=== PATIENT | female | born 1975 | race Caucasian/White ===

== ENCOUNTER 2022-10-28 13:46 | Emergency (ER) | payer OTHER, SELFPAY ==
--- NOTE | ~2022-10-28 | XR_ITS ---
EXAMINATION: XR CHEST CLINICAL INFORMATION: Cough. Question pneumonia. COMPARISON: None available. TECHNIQUE: Frontal view of the chest was obtained. FINDINGS: Cardiac silhouette is normal in size. The lungs are well aerated. There is no lobar consolidation. No pleural effusion or pneumothorax. No acute osseous abnormality. XR/XR chest 1V IMPRESSION: No acute pulmonary pathology.
[2022-10-28 13:50] VITALS: BP 160/79; PULSE 110; RESP 20; TEMP 36.9; O2SAT 96; BMI 42.0
--- NOTE | 2022-10-28 13:54 | ED.GENADULT ---
HPI - General Adult General Chief complaint: Upper Respiratory Symptoms <KELLI Landa - Last Filed: 11/10/22 12:35> Stated complaint: cough wheezing <KELLI Landa Last Filed: 11/10/22 12:35> Time Seen by Provider: 10/28/22 14:21 <KELLI Landa - Last Filed: 11/10/22 12:35> Source: patient <KELLI Hinojosa Last Filed: 10/28/22 17:37> Mode of arrival: ambulatory <KELLI Hinojosa Last Filed: 10/28/22 17:37> Limitations: no limitations <KELLI Hinojosa Last Filed: 10/28/22 17:37> History of Present Illness HPI narrative: Patient is a 47 year old assigned female at with no reported medical history presenting to the emergency department today with cough, congestion, and headache x1 weeks. Patient states that she has been having a cough, headache, and congestion for 1 week. Patient states that her son recently tested positive for strep and she was started on Pen VK but had a negative strep test so she stopped it. Patient denies any dizziness, lightheadedness, abdominal pain, nausea, vomiting, fever, chills, blurry vision, double vision, loss of vision, chest pain, difficulty breathing, shortness of breath, back pain, night sweats, pain with urination, increased urinary frequency, increased urinary urgency, blood in her urine or stool, syncope or a near syncopal episode, recent trauma or falls, bowel incontinence, bladder incontinence, bowel retention, bladder retention, or any other complaints at this time. <KELLI Hinojosa - Last Filed: 10/28/22 17:37> Onset (ago): week(s) (1) <KELLI Hinojosa Last Filed: 10/28/22 17:37> Severity: mild <KELLI Hinojosa Last Filed: 10/28/22 17:37> Severity scale (1-10): 2 <KELLI Hinojosa Last Filed: 10/28/22 17:37> Relieving factors: none <KELLI Hinojosa Last Filed: 10/28/22 17:37> Exacerbating factors: none <KELLI Hinojosa Last Filed: 10/28/22 17:37> Associated symptoms: cough <KELLI Hinojosa Last Filed: 10/28/22 17:37> Treatments prior to arrival: none <KELLI Hinojosa Last Filed: 10/28/22 17:37> Related Data Home medications: Previous Rx's Medication Instructions Recorded albuterol sulfate 90 mcg/actuation 1 inh inhalation QID PRN shortness 10/28/22 aerosol inhaler of breath or wheezing #8.5 grams prednisone 20 mg tablet 20 mg PO DAILY 7 days #7 tabs 10/28/22 <KELLI Landa Last Filed: 11/10/22 12:35> Allergies/adverse reactions: Allergies Allergy/AdvReac Type Severity Reaction Status Date / Time No Known Allergies Allergy Verified 10/28/22 13:51 <KELLI Landa Last Filed: 11/10/22 12:35> Review of Systems Constitutional: Constitutional: Reports no additional constitutional complaints, Denies chills, Denies fever(s) and Denies night sweats <KELLI Hinojosa Last Filed: 10/28/22 17:37> Eyes: Eyes: Reports no additional eye complaints, Denies blurry vision, Denies change in vision, Denies diplopia, Denies eye discharge, Denies loss of vision and Denies eye pain <KELLI Hinojosa Last Filed: 10/28/22 17:37> ENT: Denies dizziness and Reports nasal congestion <KELLI Hinojosa Last Filed: 10/28/22 17:37> Cardiovascular: Cardiovascular: Reports no additional cardiovascular complaints, Denies chest pain, Denies lightheadedness, Denies Loss of Consciousness and Denies dyspnea <KELLI Hinojosa Last Filed: 10/28/22 17:37> Respiratory: Respiratory: Reports no additional respiratory complaints, Reports cough and Denies dyspnea <KELLI Hinojosa Last Filed: 10/28/22 17:37> Gastrointestinal: Gastrointestinal: Reports no additional gastrointestinal complaints, Denies abdominal pain, Denies melena, Denies hematochezia, Denies change in bowel habits and Denies change in stool character <KELLI Hinojosa Last Filed: 10/28/22 17:37> Genitourinary: Genitourinary: Denies hematuria, Denies urinary frequency, Denies dysuria, Denies urinary incontinence, Denies urinary hesitancy and Denies urinary urgency <KELLI Hinojosa - Last Filed: 10/28/22 17:37> Musculoskeletal: Musculoskeletal: Reports no additional musculoskeletal complaints, Denies numbness and Denies tingling <KELLI Hinojosa - Last Filed: 10/28/22 17:37> Neurologic: Denies dizziness, Denies loss of vision, Denies numbness and Denies tingling <KELLI Hinojosa - Last Filed: 10/28/22 17:37> Psychiatric: Psychiatric: Reports no additional psychiatric complaints <KELLI Hinojosa - Last Filed: 10/28/22 17:37> Endocrine: Endocrine: Reports no additional endocrine complaints <KELLI Hinojosa - Last Filed: 10/28/22 17:37> Hematologic/Lymphatic: Hematologic/Lymphatic: Reports no additional hematologic/lymphatic complaints <KELLI Hinojosa - Last Filed: 10/28/22 17:37> Allergic/Immunologic: Allergic/Immunologic: Reports no additional allergic/immunologic complaints <KELLI Hinojosa - Last Filed: 10/28/22 17:37> COUNT INCLUDES THE [facility] Past Medical History Attestation statement: The following information was validated with the patient. <KELLI Hinojosa - Last Filed: 10/28/22 17:37> Source: old records reviewed and nursing notes reviewed <KELLI Hinojosa - Last Filed: 10/28/22 17:37> Social History Social History: Social History Advance Directives: No Advance Directives Information Provided: No <KELLI Landa - Last Filed: 11/10/22 12:35> Physical Exam ED Vital Signs: Vital Signs - 24 hr 10/28/22 13:50 Temperature 98.5 F Pulse Rate 110 H Respiratory Rate 20 Blood Pressure 160/79 H Pulse Oximetry 96 Oxygen Delivery Method Room Air BMI result Body Mass Index 42.0 <KELLI Landa - Last Filed: 11/10/22 12:35> Vital Signs - 24 hr 10/28/22 13:50 Temperature 98.5 F Pulse Rate 110 H Respiratory Rate 20 Blood Pressure 160/79 H Pulse Oximetry 96 Oxygen Delivery Method Room Air BMI result Body Mass Index 42.0 <KELLI Hinojosa - Last Filed: 10/28/22 17:37> Const General: cooperative, no acute distress, alert and awake <KELLI Hinojosa - Last Filed: 10/28/22 17:37> Nutritional Appearance: well nourished <KELLI Hinojosa - Last Filed: 10/28/22 17:37> Orientation/consciousness: patient oriented x3 <KELLI Hinojosa - Last Filed: 10/28/22 17:37> Limitations: no limitations <KELLI Hinojosa - Last Filed: 10/28/22 17:37> HENMT Head: Yes normal to inspection and Yes atraumatic <KELLI Hinojosa - Last Filed: 10/28/22 17:37> Ears: hearing grossly normal bilaterally and external ears normal <KELLI Hinojosa - Last Filed: 10/28/22 17:37> General nose exam: Normal external nose present, no nasal discharge noted and no epistaxis <Flores Blas PA - Last Filed: 10/28/22 17:37> Face and sinus: Yes normal facial exam, No abrasion and No laceration <Flores Blas PA - Last Filed: 10/28/22 17:37> Mouth: Normal oral and palatal mucosa present, no drooling and no muffled voice <Flores Blas PA - Last Filed: 10/28/22 17:37> Eyes General: appearance normal, both eyes and all related structures <KELLI Hinojosa - Last Filed: 10/28/22 17:37> Periorbital: periorbital findings normal <KELLI Hinojosa - Last Filed: 10/28/22 17:37> Eyelids: Yes eyelids normal <KELLI Hinojosa - Last Filed: 10/28/22 17:37> Conjunctivae: conjunctivae normal <KELLI Hinojosa - Last Filed: 10/28/22 17:37> Pupils: Equal, round and reactive pupils present <KELLI Hinojosa - Last Filed: 10/28/22 17:37> EOM: EOMs intact bilaterally <Flores Blas PA - Last Filed: 10/28/22 17:37> Neck Neck: Yes normal visual inspection, Yes full ROM and Yes no lymphadenopathy <Flores Blas PA - Last Filed: 10/28/22 17:37> Chest Chest palpation & inspection: normal inspection of the chest <Flores Blas PA - Last Filed: 10/28/22 17:37> Resp Effort & Inspection: normal respiratory effort and able to speak in complete sentences <Flores Blas PA - Last Filed: 10/28/22 17:37> Auscultation: clear to auscultation bilaterally <Flores Blas PA - Last Filed: 10/28/22 17:37> Cardio Rate: regular rate <Flores Blas PA - Last Filed: 10/28/22 17:37> Rhythm: regular rhythm <Flores Blas PA - Last Filed: 10/28/22 17:37> GI Inspection: Yes normal to inspection <Flores Blas PA - Last Filed: 10/28/22 17:37> Palpation (GI): Soft to palpation, not firm, nontender and no guarding <Flores Blas PA - Last Filed: 10/28/22 17:37> Neuro General: patient oriented x3 and moves all extremities <Flores Blas PA - Last Filed: 10/28/22 17:37> Cranial nerves: Yes Equal, round and reactive pupils present <Flores Blas PA - Last Filed: 10/28/22 17:37> Cognition (Neuro): normal cognition <Flores Blas PA - Last Filed: 10/28/22 17:37> Motor exam (neuro): 5/5 motor strength present throughout <Flores Blas PA - Last Filed: 10/28/22 17:37> Sensory Exam: Normal double simultaneous stimulation for sensation <Flores Blas PA - Last Filed: 10/28/22 17:37> Coordination: [id number] test normal <Flores Blas PA - Last Filed: 10/28/22 17:37> Extrem General: Yes normal to inspection, Yes full ROM and Yes capillary refill normal <Flores Blsa PA - Last Filed: 10/28/22 17:37> Psych Appearance: grossly normal <KELLI Hinojosa - Last Filed: 10/28/22 17:37> Mental Status: mental status grossly normal <KELLI Hinojosa - Last Filed: 10/28/22 17:37> Affect: normal affect <KELLI Hinojosa - Last Filed: 10/28/22 17:37> Attitude: cooperative <KELLI Hinojosa - Last Filed: 10/28/22 17:37> Thought process: Normal thought process present <KELLI Hinojosa - Last Filed: 10/28/22 17:37> Thought content: Normal thought content present <KELLI Hinojosa Last Filed: 10/28/22 17:37> Insight: Good insight present (Psych) <KELLI Hinojosa Last Filed: 10/28/22 17:37> Course Course Course Narrative: RME: 47 yold female presents to the ED URI symptoms. She states her son is also sick. Patietn deneis any chest pain or shortness of breath. Chest xray and SARS ordered <KELLI Landa - Last Filed: 11/10/22 12:35> Medical Decision Making Medical Decision Making MDM Narrative: Patient is a 47 year old assigned female at with no reported medical history presenting to the emergency department today with a cough and nasal congestion. Patient's physical exam was unremarkable. Patient's chest x-ray showed no acute process. Patient's COVID/RSV/Influenza swab was negative. I explained my physical exam findings as well as all test results to the patient. I answered all questions asked by the patient. I stressed the importance of the patient taking her medication as prescribed, including the previously prescribed Pen VK. I stressed the importance of the patient following up with her primary care provider. I stressed the importance of the patient returning to the emergency department immediately if her symptoms were to worsen or if she were to develop any dizziness, shortness of breath, difficulty breathing, chest pain, blurry vision, loss of vision, nausea, vomiting, abdominal pain, fever, chills, back pain, or any other complaints. Patient verbalized agreement and understanding with this treatment plan and discharge. <KELLI Hinojosa Last Filed: 10/28/22 17:37> Differential Diagnosis Differential Diagnoses: The differential diagnosis associated with the presentation includes <KELLI Hinojosa Last Filed: 10/28/22 17:37> upper respiratory infection <KELLI Hinojosa Last Filed: 10/28/22 17:37> Lab Data MDM Lab Attestation statement: I reviewed the patient's lab results. <KELLI Hinojosa Last Filed: 10/28/22 17:37> Labs: Lab Results 10/28/22 Range/Units 13:56 Influenza Type A (PCR) NEGATIVE (Negative) Influenza Type B (PCR) NEGATIVE (Negative) RSV RNA Qual (PCR) NEGATIVE (Negative) SARS-CoV-2 RNA (RT-PCR) NEGATIVE (Negative) <KELLI Landa Last Filed: 11/10/22 12:35> Lab Results 10/28/22 Range/Units 13:56 Influenza Type A (PCR) NEGATIVE (Negative) Influenza Type B (PCR) NEGATIVE (Negative) RSV RNA Qual (PCR) NEGATIVE (Negative) SARS-CoV-2 RNA (RT-PCR) NEGATIVE (Negative) <KELLI Hinojosa Last Filed: 10/28/22 17:37> Independent Interpretation I performed an independent interpretation of an: Plain X-Ray <KELLI Hinojosa Last Filed: 10/28/22 17:37> Interpretation: My interpretation is in agreement with the radiologist's impression of this imaging study. EXAMINATION: XR CHEST CLINICAL INFORMATION: Cough. Question pneumonia. COMPARISON: None available. TECHNIQUE: Frontal view of the chest was obtained. FINDINGS: Cardiac silhouette is normal in size. The lungs are well aerated. There is no lobar consolidation. No pleural effusion or pneumothorax. No acute osseous abnormality. XR/XR chest 1V IMPRESSION: No acute pulmonary pathology. ? Dictated By: Donell Madera MD Signed By: Electronically signed by Donell Madera MD 10/28/22 1524 <KELLI Hinojosa - Last Filed: 10/28/22 17:37> Discharge Plan Discharge Clinical Impression: Upper respiratory infection <KELLI Landa - Last Filed: 11/10/22 12:35> Patient Disposition: Home, Self-Care <KELLI Landa - Last Filed: 11/10/22 12:35> Instructions: Upper Respiratory Infection (DC) <KELLI Landa Last Filed: 11/10/22 12:35> Additional Instructions: Continue taking your antibiotics as previously perscribed. Follow up with your primary care provider. Return to the emergency department immediately if your symptoms worsen or if you develop any dizziness, shortness of breath, difficulty breathing, chest pain, blurry vision, loss of vision, nausea, vomiting, abdominal pain, fever, chills, back pain, or any other complaints. <KELLI Landa - Last Filed: 11/10/22 12:35> Prescriptions: New prednisone 20 mg tablet 20 mg PO DAILY 7 Days Qty: 7 0RF albuterol sulfate 90 mcg/actuation HFA aerosol inhaler 1 inh inhalation QID PRN (Reason: shortness of breath or wheezing) Qty: 8.5 0RF <KELLI Landa - Last Filed: 11/10/22 12:35> Referrals: Anuradha Jones NP [Primary Care Provider] - <KELLI Landa - Last Filed: 11/10/22 12:35> Stand Alone Forms: Work/School Release <KELLI Landa - Last Filed: 11/10/22 12:35> Interventions: ED Discharge Assessment Last Done: 10/28/22 14:51 <KELLI Landa - Last Filed: 11/10/22 12:35> Discharge Date/Time: 10/28/22 14:52 <KELLI Landa - Last Filed: 11/10/22 12:35> Print Language: Mongolian <KELLI Landa Last Filed: 11/10/22 12:35>
--- OUTSIDE RECORDS SUMMARY | 2022-10-28 14:31 | XMS_ITS | Continuity of Care Document ---
Author Name Unknown Organization [facility] e Medicine Address [address], [address] [place] [address]- Care Team Providers Care Grade Checker Name Role Phone Omar Mauro BARDALES Primary Care Physician Encounter [facility] [place] Date(s): 07/07/20 - 08/06/20 [facility] Reproductive Medicine [address], 4[address] [place] [address]- Allergies, Adverse Reactions, Alerts Substance Reaction Severity Status NKA Active Medications Adderall 10 mg oral tablet 1 tablet = 10 mg, By Mouth, 3 times a day, 0 Refills, Maintenance, 11/08/15 15:57:39 Start Date: 11/08/15 Status: Ordered Albuterol 0, 0, 03/14/06 15:11:20, Print DIEGO Number, Constant Indicator Start Date: 03/14/06 Status: Ordered Amlodipine = 5 mg, By Mouth, Daily, 0 Refills, Maintenance, 01/02/16 20:45:06 Start Date: 01/02/16 Status: Ordered BuSpar 15 mg oral tablet 1 tablet, By Mouth, Daily in AM, 0 Refills, Maintenance, 11/08/15 15:57:03 Start Date: 11/08/15 Status: Ordered CeleXA 40 mg oral tablet 40 mg, 1, tablet, By Mouth, Daily, # 30 tablet, Refills 0, Maintenance, 11/08/15 15:56:54 Start Date: 11/08/15 Status: Ordered Hydrochlorothiazide = 25 mg, By Mouth, Daily, 0 Refills, Maintenance, 11/08/15 15:57:25 Start Date: 11/08/15 Status: Ordered ibuprofen 800 mg oral tablet 800 mg, 1, tablet, By Mouth, Every 8 hours, # 30 tablet, Refills 0, Tot. Refills 0, Maintenance, 12/11/15 10:38:52, Print Requisition Start Date: 12/11/15 Status: Ordered lisinopril 5 mg oral tablet 5 mg, 1, tablet, By Mouth, Daily, # 30 tablet, Refills 0, Maintenance, 01/24/16 11:42:33 Start Date: 01/24/16 Status: Ordered NuLYTELY with Flavor Packs oral powder for reconstitution 240 mL, By Mouth, Every 10 minutes, # 1 each, 0 Refills, Maintenance, 05/28/16 14:29:50, REC Powder, 240 mL By Mouth Every 10 minutes Start Date: 05/28/16 Status: Ordered Aileen-Colace 2 tablet, By Mouth, Daily at bedtime, 0 Refills, Maintenance, 05/28/16 10:57:20 Start Date: 05/28/16 Status: Ordered Problem List Condition Effective Dates Status Health Status Inform ant Abnormal uterine bleeding (AUB)(Confirmed) Active Adult ADHD(Confirmed) Active Asthma - currently dormant(Confirmed) Active Depression(Confirmed) Active Mild HTN(Confirmed) Active 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
--- OUTSIDE RECORDS SUMMARY | 2022-10-28 14:31 | XMS_ITS | Continuity of Care Document ---
Author Name Unknown Organization [facility] e Medicine Address [address], [address] [place] [address]- Care Team Providers Care Structural Technician Name Role Phone Omar Mauro BARDALES Primary Care Physician [phone] Encounter [facility] [place] Date(s): 12/12/20 - 01/11/21 [facility] Reproductive Medicine [address], 4[address] [place] [address]- Allergies, Adverse Reactions, Alerts Substance Reaction Severity Status NKA Active Medications Adderall 10 mg oral tablet 1 tablet = 10 mg, By Mouth, 3 times a day, 0 Refills, Maintenance, 11/08/15 15:57:39 Start Date: 11/08/15 Status: Ordered Albuterol 0, 0, 03/14/06 15:11:20, Print DIEGO Number, Constant Indicator Start Date: 03/14/06 Status: Ordered CeleXA 40 mg oral tablet 40 mg, 1, tablet, By Mouth, Daily, # 30 tablet, Refills 0, Maintenance, 11/08/15 15:56:54 Start Date: 11/08/15 Status: Ordered cetirizine 10 mg oral tablet 1 tablet = 10 mg, By Mouth, Daily, 0 Refills, Maintenance, 08/25/20 8:17:00 EST, Partial fill upon patient request if the prescription is for a schedule II opioid drug. Start Date: 08/25/20 Status: Ordered NIFEdipine 30 mg oral tablet, extended release 30 mg, 1, tablet, By Mouth, Daily, Refills 0, Maintenance, 08/25/20 8:17:00 EST, Partial fill upon patient request if the prescription is for a schedule II opioid drug. Start Date: 08/25/20 Status: Ordered propranolol 80 mg oral capsule, extended release 80 mg, 1, capsule, By Mouth, Daily, Refills 0, Maintenance, 08/25/20 8:16:00 EST, Partial fill uponpatient request if the prescription is for a schedule II opioid drug. Start Date: 08/25/20 Status: Ordered Vitamin B Complex Vitamin B Complex, Refills 0, Maintenance, 08/25/20 8:18:00 EST, Supply Start Date: 08/25/20 Status: Ordered Vitamin D3 By Mouth, Daily, 0 Refills, Maintenance, 08/25/20 8:17:00 EST, Partial fill upon patient request ifthe prescription is for a schedule II opioid drug. Start Date: 08/25/20 Status: Ordered Problem List Condition Effective Dates [...]
--- OUTSIDE RECORDS SUMMARY | 2022-10-28 14:31 | XMS_ITS | Continuity of Care Document ---
Author Name Unknown Organization [facility] e Medicine Address [address], [address] [place] [address]- Care Team Providers Care Bioinformatics Technician Name Role Phone Omar Mauro BARDALES Primary Care Physician [phone] Encounter [facility] [place] Date(s): 08/25/20 - 09/24/20 [facility]ro[facility] [address] [place], [place] [address] [[email or web address] Attending Physician: Nasrin Zuniga Admitting Physician: Nasrin Zuniga Referring Physician: AdmtrNasrin Allergies, Adverse Reactions, Alerts Substance Reaction Severity [...]
--- OUTSIDE RECORDS SUMMARY | 2022-10-28 14:31 | XMS_ITS | Continuity of Care Document ---
Author Name Unknown Organization [facility] e Medicine Address [address], [address] [place] [address]- Care Team Providers Care Manufacturing Engineer Paint Name Role Phone Omar Mauro BARDALES Primary Care Physician [place] [facility] [place](s): 08/29/20 - 09/28/20 [facility] Reproductive Medicine [address], 4th [address] [place] [address]- Allergies, Adverse Reactions, Alerts Substance Reaction Severity [...]
--- OUTSIDE RECORDS SUMMARY | 2022-10-28 14:31 | XMS_ITS | Continuity of Care Document ---
Author Name Unknown Organization [facility] Address [address] [place] [address]- Care Team Providers Care Skein Winder Name Role Phone Karen ALFRED, Anuradha Go Primary Care Physician [phone] Encounter [facility] [place] Date(s): 09/26/21 - 10/26/21 [facility] [address] [place] [id number] Attending Physician: Nasrin Zuniga Admitting Physician: AdmNasrin olguin Referring Physician: Admtr Ar8 Allergies, Adverse Reactions, Alerts No Known Allergies Medications Adderall 10 mg oral tablet 1 [...] opioid drug. Start Date: 08/25/20 Status: Ordered Provera 10 mg oral tablet 10 mg, 1, tablet, By Mouth, 2 times a day, for 10 days, # 20 tablet, Refills 1, Tot. Refills 1, Acute 10/31/21 15:07:00 EDT, 10/11/21 15:07:00 EST, Route to Pharmacy Electronically, [facility]/pharmacy #[id number], Partial fill upon patient request if the prescrip... Start Date: 10/11/21 Stop Date: 10/31/21 Status: Ordered Provera 10 mg oral tablet 20 mg, 2, tablet, By Mouth, Daily, # 180 tablet, Refills 6, Tot. Refills 6, Maintenance, 10/24/21 16:33:00 EDT, Route to Pharmacy Electronically, [facility]/pharmacy #[id number], Partial fill upon patient requestif the prescription is for a schedule II opioid ha... 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
--- OUTSIDE RECORDS SUMMARY | 2022-10-28 14:31 | XMS_ITS | Continuity of Care Document ---
Author Name Unknown Organization [facility] Address [address] [place] [address]- Care Team Providers Care Manager Residential Name Role Phone Augustine Do DObrooklyn Go Primary Care Physician Encounter [facility] [place] Date(s): 08/28/20 - 11/15/20 [facility] [address] [place] [id number] Attending Physician: Hiram Delgado MD Admitting Physician: Sandy BOO, Hiram Referring Physician: Dorita Goodman MD Allergies, Adverse Reactions, Alerts Substance Reaction Severity [...]
--- OUTSIDE RECORDS SUMMARY | 2022-10-28 14:31 | XMS_ITS | Continuity of Care Document ---
Author Name Unknown Organization [facility] Address [address] [place] [address]- Care Team Providers Care Lithopone Mill Worker Name Role Phone Mauro Do DO Primary Care Physician [phone] Encounter [facility] [place] Date(s): 10/16/20 - 11/15/20 [facility] [address] [place] [id number] Attending Physician: Nasrin Zuniga Admitting Physician: AdmtrNasrin Referring Physician: Admtr, Ar8 Allergies, Adverse Reactions, Alerts Substance Reaction Severity [...]
--- OUTSIDE RECORDS SUMMARY | 2022-10-28 14:31 | XMS_ITS | Continuity of Care Document ---
Author Name Unknown Organization [facility] Address [address] [place] [address]- Care Team Providers Care Program Schedule Clerk Name Role Phone Karen ALFRED, Anuradha Go Primary Care Physician [phone] [place] [facility] [place]): [place] - 12/15/21 [facility] Oncology [address] [place] [address]- Attending Physician: Mark yBrd MD Admitting Physician: Mark Byrd MD Referring Physician: Anuradha Jones NP Allergies, Adverse Reactions, Alerts No Known Allergies [...] 10/24/21 16:33:00 EDT, Route to Pharmacy Electronically, [facility]/pharmacy #[id number], Partial fill upon patient requestif the prescription [...]
--- OUTSIDE RECORDS SUMMARY | 2022-10-28 14:31 | XMS_ITS | Continuity of Care Document ---
Author Name Unknown Organization [facility] e Medicine Address Unknown Care Team Providers Care Web Designer Name Role Phone Karen ALFRED, Anuradha Go Primary Care Physician Encounter [facility] [place] AC[facility] R [id number] Date(s): 01/22/22 - 01/29/22 [facility] Reproductive Medicine Attending Physician: Dorita Goodman MD Allergies, Adverse Reactions, Alerts No Known Allergies [...] 10/24/21 16:33:00 EDT, Route to Pharmacy Electronically, [facility]/pharmacy #[id number], Partial fill upon patient requestif the [...] 2006 Active 1laparoscopic tubal with filshie clips Vital Signs Most recent to oldest [Reference Range]: 1 Height 160 cm (01/22/22 3:43 PM) Weight 104.3 kg (01/22/22 3:43 PM) Pulse Rate [55-90 bpm] 96 bpm *H* (01/22/22 3:43 PM) Body Mass Index [18.5-24.99] 40.74 *>HHI* (01/22/22 3:43 PM) Blood Pressure [90-138/55-84 mm Hg] 170/ 88mm Hg *H* (01/22/22 3:43 PM) Blood pressure sites Arm, left (01/22/22 3:43 PM) Weight Obtained Via Standing scale (01/22/22 3:43 PM) Social History Social History Type Response Smoking Status Tobacco user in hous ehold: No;Never smoker entered on: 11/08/15 Sex
--- OUTSIDE RECORDS SUMMARY | 2022-10-28 14:31 | XMS_ITS | Continuity of Care Document ---
Author Name Unknown Organization [facility] Deni Garcia [facility] Address [address], [address] [place] [address]- Care Team Providers Care Chinese Herbalist Name Role Phone Mauro Do DO Primary Care Physician En[place] [facility] [place] Date(s): 08/22/20 - 09/21/20 [facility] [address] [place], [place] [address] Allergies, Adverse Reactions, Alerts Substance Reaction Severity [...]
--- OUTSIDE RECORDS SUMMARY | 2022-10-28 14:31 | XMS_ITS | Continuity of Care Document ---
Author Name Unknown Organization [facility] e Medicine Address [address], [address] [place] [address]- Care Team Providers Care Order Packer Or Packager Name Role Phone Omar Mauro BARDALES Primary Care Physician Encounter [facility] [place] Date(s): 11/14/20 - 12/14/20 [facility] Reproductive Medicine [address], [address] [place] [address]- Allergies, Adverse Reactions, Alerts Substance Reaction Severity [...]
--- OUTSIDE RECORDS SUMMARY | 2022-10-28 14:31 | XMS_ITS | Continuity of Care Document ---
Author Name Unknown Organization [facility] e Medicine Address Unknown Care Team Providers Care Associate Professor Of Criminal Justice Name Role Phone Karen ALFRED, Anuradha Go Primary Care Physician [place] [facility] [place] Date(s): 01/22/22 - 02/21/22 [facility] Reproductive Medicine Attending Physician: Nasrin Zuniga Admitting Physician: Nasrin Zuniga Referring Physician: AdmtrNasrin Allergies, Adverse Reactions, Alerts No Known Allergies [...] 16:33:00 EDT, Route to Pharmacy Electronically, [facility]/pharmacy #[id number], Partial fill upon patient requestif the [...]
--- OUTSIDE RECORDS SUMMARY | 2022-10-28 14:31 | XMS_ITS | Continuity of Care Document ---
Author Name Unknown Organization [facility] e Medicine Address Unknown Care Team Providers Care Linseed Oil Press Tender Name Role Phone Karen ALFRED, Anuradha Go Primary Care Physician [place] [facility] [place](s): 10/29/21 - 11/28/21 [facility] Reproductive Medicine Allergies, Adverse Reactions, Alerts No Known Allergies [...] 16:33:00 EDT, Route to Pharmacy Electronically, [facility]/pharmacy #[id number], Partial fill upon patient requestif the [...]
--- OUTSIDE RECORDS SUMMARY | 2022-10-28 14:31 | XMS_ITS | Continuity of Care Document ---
Author Name Unknown Organization [facility] e Medicine Address Unknown Care Team Providers Care Sound Effects Technician Name Role Phone Karen ALFRED, Anuradha Go Primary Care Physician [phone] [place] [facility] [place] 10[place]10/21 - 11/09/21 [facility] Reproductive Medicine Allergies, Adverse Reactions, Alerts [...] EDT, Route to Pharmacy Electronically, [facility]/pharmacy #[id number], Partial fill upon patient requestif the prescription [...]
--- OUTSIDE RECORDS SUMMARY | 2022-10-28 14:32 | XMS_ITS | Continuity of Care Document ---
Author Name Unknown Organization [facility] e Medicine Address Unknown Care Team Providers Care Tap Puller Name Role Phone Karen ALFRED, Anuradha Go Primary Care Physician [place] [facility] [place] Date(s): 10/23/21 - 11/22/21 [facility] Reproductive Medicine Allergies, Adverse Reactions, Alerts [...] 10/24/21 16:33:00 EDT, Route to Pharmacy Electronically, [facility]/pharmacy #[id number], Partial fill upon patient requestif [...]
--- OUTSIDE RECORDS SUMMARY | 2022-10-28 14:32 | XMS_ITS | Continuity of Care Document ---
Author Name Unknown Organization [facility] e Medicine Address [address], [address]t [address] [place] [address]- Care Team Providers Care Hemmer Automatic Name Role Phone Mauro Do DO Primary Care Physician Encounter [facility] [place] Date(s): 08/25/20 - 09/01/20 [facility] Reproductive Medicine [address] [place] [address]- Attending Physician: Dorita Goodman MD Referring Physician: Mauro Do DO Allergies, Adverse Reactions, Alerts Substance Reaction Severity [...] oldest [Reference Range]: 1 Height 160 cm (08/25/20 8:11 AM) Social History Social History Type Response Smoking Status Tobacco user in hous ehold: No;Never smoker entered on: 11/08/15 Sex
--- OUTSIDE RECORDS SUMMARY | 2022-10-28 14:32 | XMS_ITS | Continuity of Care Document ---
Author Name Unknown Organization [facility] Address [address] [place] [address]- Care Team Providers Care Agronomy Manager Name Role Phone Muaro Do DO Primary Care Physician Encounter [facility] Date(s): 10/16/20 - 11/15/20 [facility] [address] [place] [id number] Allergies, Adverse Reactions, Alerts Substance Reaction Severity [...]
--- OUTSIDE RECORDS SUMMARY | 2022-10-28 14:32 | XMS_ITS | Continuity of Care Document ---
Author Name Unknown Organization [facility] e Medicine Address Unknown Care Team Providers Care It Intern Name Role Phone Karen ALFRED, Anuradha Go Primary Care Physician [facility] [place] Date(s): 02/05/22 - 03/07/22 [facility] Reproductive Medicine Allergies, Adverse Reactions, Alerts [...] 10/24/21 16:33:00 EDT, Route to Pharmacy Electronically, [facility]/pharmacy #[id number], Partial fill upon patient requestif the prescription [...]
--- OUTSIDE RECORDS SUMMARY | 2022-10-28 14:32 | XMS_ITS | Continuity of Care Document ---
Author Name Unknown Organization [facility] Address [address] [place] [address]- Care Team Providers Care Health Program Director Name Role Phone Karen ALFRED, Anuradha Go Primary Care Physician Encounter [facility] [place] Date(s): 11/15/21 - 12/15/21 [facility] [address] [place] [address]- Attending Physician: Nasrin Zuniga Admitting Physician: Nasrin Zuniga Referring Physician: Nasrin Zuniga Allergies, Adverse Reactions, Alerts No Known Allergies [...] 10/24/21 16:33:00 EDT, Route to Pharmacy Electronically, [facility]/pharmacy #[id number], Partial fill upon patient requestif [...]
--- OUTSIDE RECORDS SUMMARY | 2022-10-28 14:32 | XMS_ITS | Continuity of Care Document ---
Author Name Unknown Organization [facility] e Medicine Address Unknown Care Team Providers Care Entry Writer Name Role Phone Karen ALFRED, Anuradha Go Primary Care Physician [place] [facility] [place] 10[place]12/21 - 11/11/21 [facility] Reproductive Medicine Allergies, Adverse [...] 10/24/21 16:33:00 EDT, Route to Pharmacy Electronically, [facility]/pharmacy #[id number], Partial fill upon patient requestif the prescription [...]
--- OUTSIDE RECORDS SUMMARY | 2022-10-28 14:32 | XMS_ITS | Continuity of Care Document ---
Author Name Unknown Organization [facility] e Medicine Address Unknown Care Team Providers Care Regulatory Technician Name Role Phone Omar Mauro BARDALES Primary Care Physician En[place] [facility] [place] Date(s): 07/24/21 - 08/23/21 [facility] Reproductive Medicine Allergies, Adverse Reactions, Alerts [...]
--- OUTSIDE RECORDS SUMMARY | 2022-10-28 14:32 | XMS_ITS | Continuity of Care Document ---
Author Name Unknown Organization [facility] Medicine Address Unknown Care Team Providers Care Grant Writer Name Role Phone Karen ALFRED, Anuradha Go Primary Care Physician [phone] [place] [facility] [place](s): 10/11/21 - 10/18/21 [facility] Reproductive Medicine Attending Physician: Shadia Aceves MD Allergies, Adverse Reactions, Alerts No Known [...] 15:07:00 EST, Route to Pharmacy Electronically, [facility]/pharmacy #[id number], Partial fill upon patient request if the prescrip... Start Date: 10/11/21 Stop Date: 10/31/21 Status: Ordered Vitamin B Complex Vitamin B [...] oldest [Reference Range]: 1 Height 160 cm (10/11/21 3:22 PM) Weight 107.9 kg (10/11/21 3:22 PM) Pulse Rate [55-90 bpm] 103 bpm *H* (10/11/21 3:22 PM) Body Mass Index [18.5-24.99] 42.15 *>HHI* (10/11/21 3:22 PM) Blood Pressure [90-138/55-84 mm Hg] 165/ 84mm Hg *H* (10/11/21 3:22 PM) Blood pressure sites Arm, left (10/11/21 3:22 PM) Weight Obtained Via Standing scale (10/11/21 3:22 PM) Social History Social History Type Response Smoking Status Tobacco user in hous ehold: No;Never smoker entered on: 11/08/15 Sex
--- OUTSIDE RECORDS SUMMARY | 2022-10-28 14:32 | XMS_ITS | Continuity of Care Document ---
Author Name Unknown Organization [facility] Address [address] [place] [address]- Care Team Providers Care Kiln Car Unloader Name Role Phone Karen ALFRED, Anuradha Go Primary Care Physician Encounter [facility] [place] Date(s): 09/14/21 - 10/26/21 [facility] [address] [place] [id number] Attending Physician: Not on Staff, Attending MD Referring Physician: Dorita Goodman MD Allergies, Adverse [...] 10/11/21 15:07:00 EST, Route to Pharmacy Electronically, [facility]/pharmacy #[id number], Partial fill upon patient request if the prescrip... Start Date: 10/11/21 Stop Date: 10/31/21 Status: Ordered Provera 10 mg oral tablet 20 mg, 2, tablet, By Mouth, Daily, # 180 tablet, Refills 6, Tot. Refills 6, Maintenance, 10/24/21 16:33:00 EDT, [id number] Partial fill upon patient requestif the prescription [...]
[2022-10-28 14:45] LABS: Influenza A PCR NEGATIVE (Negative); Influenza B PCR NEGATIVE (Negative); Resp Syncy Virus RNA Qual PCR NEGATIVE (Negative); SARS COV2 PCR INHOUSE NEGATIVE (Negative)
== END 2022-10-28 14:52 | disposition home or self-care (01) ==
PROVIDERS: Physician Assistant; Emergency Provider Student in an Organized Health Care Education/Training Program; PCP Nurse Practitioner Family
DX: J06.9 Acute upper respiratory infection, unspecified (principal); R05.9 Cough, unspecified; Z20.822 Contact with and (suspected) exposure to COVID-19; Z20.828 Contact with and (suspected) exposure to other viral communicable diseases
CPT/HCPCS: 0241U; 71045; 99282; 99283

== ENCOUNTER 2024-03-21 15:46 | Emergency (ER) | payer OTHER, SELFPAY ==
--- NOTE | ~2024-03-21 | XR_ITS ---
EXAMINATION: XR SHOULDER, RIGHT CLINICAL INFORMATION: Right shoulder pain COMPARISON: None available. TECHNIQUE: AP external rotation, Grashey, scapular Y, and axillary views of the right shoulder. FINDINGS: No acute fracture or dislocation. Glenohumeral and acromioclavicular alignment is anatomic. Normal glenohumeral joint space. Mild degenerative changes involving the right acromioclavicular joint. No acute soft tissue abnormality. No abnormal soft tissue calcifications. XR/XR shoulder RT min 2V IMPRESSION: No acute fracture or dislocation.
[2024-03-21 16:05] VITALS: BP 155/72; PULSE 92; RESP 18; TEMP 36.8; O2SAT 97; BMI 40.1
--- NOTE | 2024-03-21 16:05 | ED_ITS ---
HPI - Extremity Injury (Upper) General Chief Complaint: Extremity Injury, Upper Stated Complaint: RT shoulder pain Time Seen by Provider: 03/21/24 17:26 Source: patient, RN notes reviewed and old records reviewed Mode of arrival: ambulatory History of Present Illness ED Provider: Roz Disla PA-C HPI narrative: 48-year-old female with no significant past medical history presenting to the ED complaining of atraumatic right shoulder pain x4 days. Reports pain when moving arm backwards. Admits to decreased strength secondary to pain. Does report loading > 100 boxes onto pallets a few days before pain started. Denies known injury, trauma or fall/overuse. Denies chest pain, shortness breath, numbness/tingling. Related Data Previous Rx's ?Medication ?Instructions ?Recorded albuterol sulfate 90 mcg/actuation 1 inh inhalation QID PRN shortness 10/28/22 aerosol inhaler of breath or wheezing #8.5 grams prednisone 20 mg tablet 20 mg PO DAILY 7 days #7 tabs 10/28/22 acetaminophen 500 mg tablet 500 mg PO Q6H PRN fever or pain 03/21/24 (Tylenol Extra Strength) #14 tabs cyclobenzaprine 5 mg tablet 5 mg PO Q8H PRN pain (scale score 03/21/24 7-10) 5 days #14 tabs ketorolac 10 mg tablet 10 mg PO TID PRN pain 5 days #15 03/21/24 tabs lidocaine 5 % topical patch 1 patch topical DAILY PRN pain #30 03/21/24 (Lidoderm) ea Allergies Allergy/AdvReac Type Severity Reaction Status Date / Time No Known Allergies Allergy Verified 03/21/24 16:07 Review of Systems Review of Systems: Constitutional: No Fever, No Chills ENT/Mouth: No Ear Pain, No Nasal Congestion, No sore throat, No Rhinorrhea, No Swallowing Difficulty Cardiovascular: No Chest Pain, No SOB Respiratory: No Cough, No Sputum Gastrointestinal: No Nausea, No Vomiting, No Abdominal pain Genitourinary: No Dysuria, No Urinary Frequency, No Hematuria, No Flank Pain Musculoskeletal: + joint pain, No Myalgias, No Joint Swelling Skin: No Skin Lesions, No rash Neuro: No Weakness, No Numbness, No Paresthesias Yes all other systems are reviewed and are negative Constitutional: Constitutional: Reports as per [facility] Past Medical History Attestation statement: The following information was validated with the patient. Source: old records reviewed Social History Social History Unable to assess alcohol history related to: Unknown Smoked in Last 30 Days: No Use of substances other than those prescribed or required for medical reasons: Unknown Advance Directives: No Advance Directives Information Provided: No Physical Exam Vital Signs: Vital Signs: Last Vital Signs Temp 98.2 F 03/21/24 16:05 Pulse 92 03/21/24 16:05 Resp 18 03/21/24 16:05 BP 155/72 H 03/21/24 16:05 Pulse Ox 97 03/21/24 16:05 O2 Del Method Room Air 03/21/24 16:05 BMI result Body Mass Index 40.1 Const: General: cooperative, healthy appearing and no acute distress Orientation/consciousness: patient oriented x3 Limitations: no limitations HEENT: Head: Yes normal to inspection and Yes atraumatic Ears: hearing grossly normal bilaterally General nose exam: Normal external nose present Face and sinus: Yes normal facial exam Eyes: General: appearance normal, both eyes and all related structures EOM: EOMs intact bilaterally Neck: Neck: Yes normal visual inspection and Yes no meningeal signs Resp: Effort & Inspection: normal respiratory effort and no respiratory distress Cardio: Rate: regular rate Skin: Rashes: no rashes Wounds: no wounds Neuro: General: patient oriented x3, tone normal and no meningeal signs Cranial nerves: Yes CN's II-XII intact bilaterally Gait exam (Neuro): Normal gait present Extrem: Other: No deformity. No swelling/warmth. +tenderness to palpation to anterior joint line & R trapezius muscle. No midline cervical tenderness. ROM intact to right shoulder with discomfort w/internal rotation. NV intact distally. strength intact General: Yes normal to inspection Course Course Course Narrative: This is a Rapid Medical Exam performed in triage by Roz Disla PA-C. Full HPI, ROS and PE to be performed by primary ED provider. 48 yo F w/no sig PMHx presenting to the ED c/o atraumatic right shoulder pain x Friday night. reports pins & needles to R hand. denies CP PE: nontender to palpation, pain with internal rotation. NV intact distally. No swelling Plan: EKG, XR -1922--patient's x-ray still not read by radiologist. Patient would like to be discharged prior to official read. Results discussed with patient including worrisome signs and symptoms and strict return precautions, and when to return to the emergency department. They verbalized understanding and feel safe for discharge at this time. 1933--XR shoulder RT min 2V IMPRESSION: No acute fracture or dislocation Medications Administered Discontinued Medications Generic Name Dose Route Start Last Admin Trade Name Kelsey PRN Reason Stop Dose Admin Ketorolac Tromethamine 30 mg 03/21/24 17:29 03/21/24 17:35 Ketorolac Tromethamine 30 Mg/Ml Vial IM 03/21/24 17:30 30 mg ONCE ONE Administration Medical Decision Making Medical Decision Making MDM Narrative: 48-year-old female with no significant past medical history presenting to the ED complaining of atraumatic right shoulder pain x4 days. On exam vital signs stable, NAD, nontoxic appearing, physical exam as noted above. Concern for tendinitis vs strain vs arthritis. Low suspicion for fracture. No evidence of septic joint/arthritis. Lower suspicion for atypical ACS Plan: EKG, x-ray, pain control Please refer to course for remaining clinical decision making, interpretation of labs/imaging results, and discussions with consultants and/or family members. Differential Diagnosis Differential Diagnoses: The differential diagnosis associated with the presentation includes As above Independent Interpretation I performed an independent interpretation of an: EKG (My interpretation EKG normal sinus rhythm rate of 86. IL interval 158. No STEMI. Nonischemic.) and Plain X-Ray Radiology Impression Discussion of test interpretation with radiology: I have reviewed the radiologist's reading. External Record Review External record reviewed: Inpatient record, Office record, Outpatient record, Prior outpatient labs, Prior outpatient radiology, Primary care record and Outside ED record Tests considered The following testing was considered but not selected: As above Prescription Management I considered prescription management with: Pain Medication Discharge Plan Discharge Clinical Impression: Acute shoulder pain Patient Disposition: Home, Self-Care Instructions: Shoulder Pain (ED) Additional Instructions: Your x-rays not read by the radiologist Flexeril is a muscle relaxer, take at night as it makes you drowsy, do not drive, drink alcohol, or operate machinery while taking it Toradol as an anti-inflammatory / pain medication, take with food Lidoderm patches are numbing patches, apply to painful area In addition take Tylenol at home If symptoms persist or worsen, pain becomes unbearable, you developed urinary retention or incontinence, or weakness return to the ED Prescriptions: New ketorolac 10 mg tablet 10 mg PO TID PRN (Reason: pain) 5 Days Qty: 15 0RF cyclobenzaprine 5 mg tablet 5 mg PO Q8H PRN (Reason: pain (scale score 7-10)) 5 Days Qty: 14 0RF acetaminophen [Tylenol Extra Strength] 500 mg tablet 500 mg PO Q6H PRN (Reason: fever or pain) Qty: 14 0RF lidocaine [Lidoderm] 5 % adhesive patch,medicated 1 patch topical DAILY MDD remove after 12 hours PRN (Reason: pain) Qty: 30 0RF Rx Instructions: leave on most painful area for up to 12 hrs No Action prednisone 20 mg tablet 20 mg PO DAILY 7 Days Qty: 7 0RF albuterol sulfate 90 mcg/actuation HFA aerosol inhaler 1 inh inhalation QID PRN (Reason: shortness of breath or wheezing) Qty: 8.5 0RF Referrals: [facility] [place] [facility] [Provider Group] Anuradha Jones, PALLET REPAIRER [Primary Care Provider] - Print Language: Irish
--- NOTE | 2024-03-21 16:07 | ECG_ITS ---
Test Reason : SHOULDER INJURY Blood Pressure : / mmHG Vent. Rate : 086 BPM Atrial Rate : 086 BPM P-R Int : 158 ms QRS Dur : 098 ms QT Int : 388 ms P-R-T Axes : 034 052 019 degrees QTc Int : 464 ms Normal sinus rhythm Normal ECG No previous ECGs available Referred By: Roz Disla Electronically Signed By:LASHELL SANFORD
[2024-03-21] MEDS: Ketorolac Tromethamine 30 MG/ML VIAL IM (17:35)
[2024-03-21] MEDS: Cyclobenzaprine HCl 10 MG TABLET PO (19:38)
[2024-03-21] MEDS: Lidocaine 4 % Patch ADH..PATCH 1 PATCH TRANSDERMA (19:38)
[2024-03-21 19:50] VITALS: BP 155/72; PULSE 92; RESP 18; TEMP 36.8; O2SAT 97
== END 2024-03-21 19:51 | disposition home or self-care (01) ==
PROVIDERS: Emergency Provider Emergency Medicine; PCP Nurse Practitioner Family
DX: M25.511 Pain in right shoulder (principal)
CPT/HCPCS: 73030; 93005; 96372; 99284; J1885

== ENCOUNTER 2025-03-05 17:31 | Emergency (ER) | payer OTHER, SELFPAY ==
--- NOTE | ~2025-03-05 | CT_ITS ---
CLINICAL HISTORY: radicular sxs right side CT cervical spine without contrast Comparison: None provided Findings: Vertebral alignment is within normal limits. No acute fractures or dislocations. There is mild degenerative change of the cervical spine. At C4-5 there is a circumferential disc bulge without canal stenosis. No foraminal narrowing. At C5-6 there is a disc osteophyte complex which results in moderate canal stenosis with an AP diameter of 7 mm. There is a left foraminal disc protrusion which in conjunction with uncovertebral hypertrophy results in moderately severe left foraminal narrowing. Minimal right-sided foraminal narrowing. At C6-7 there is a disc osteophyte complex withmoderate central canal narrowing with an AP diameter of 7 mm. There is a left foraminal disc protrusion in conjunction with uncovertebral hypertrophy that results in severe left-sided foraminal narrowing. Minimal right-sided foraminal narrowing. At C7-T1 there is a minimal circumferential disc bulge. No central canal narrowing. No significant foraminal narrowing. Visualized intracranial contents are unremarkable. Soft tissues of the neck are normal. No consolidation or effusion at the lung apices. IMPRESSION: Degenerative changes present with which results in moderate canal stenosis at C5-6 and C6-7. Left-sided moderately severe to severe foraminal narrowing at C5-6 and C6-7. This document has been electronically signed by: Josemanuel Limon MD on 03/05/2025 20:35:49
[2025-03-05 17:34] VITALS: BP 157/71; PULSE 86; RESP 17; TEMP 36.7; O2SAT 97; BMI 39.2
--- NOTE | 2025-03-05 17:35 | ED_ITS ---
HPI - Extremity Problem General Chief complaint: Extremity Injury, Upper Stated complaint: pain back and radiating down rt arm Time Seen by Provider: 03/05/25 19:16 Source: patient Limitations: no limitations History of Present Illness ED Provider: Kortney Parker PA-C HPI Narrative: 49-year-old female presents with right-sided neck pain x1 week. Pain radiates down right lower extremity to the tips of her fingers. Associated tingling sensation. Patient states she has been using [id number] ibuprofen and Tylenol without relief from her symptoms. Denies headache, visual changes, nausea vomiting or weakness of upper extremity. Patient states she has been performing a great deal of heavy lifting at work prior to the onset of her symptoms, she has had similar episodes in the past, while performing the same activity. Related Data Previous Rx's ?Medication ?Instructions ?Recorded albuterol sulfate 90 mcg/actuation 1 inh inhalation QI D PRN shortness 10/28/22 aerosol inhaler of breath or wheezing #8.5 g naz prednisone 20 mg tablet 20 mg PO DAILY 7 days #7 tab s 10/28/22 acetaminophen 500 mg tablet 500 mg PO Q6H PRN fever or pain 03/21/24 (Tylenol Extra Strength) #14 tabs cyclobenzaprine 5 mg tablet 5 mg PO Q8H PRN pain (scal e score 03/21/24 7-10) 5 days #14 tabs ketorolac 10 mg tablet 10 mg PO TID PRN pain 5 days #15 03/21/24 tabs lidocaine 5 % topical patch 1 patch topical DAILY PRN pain #30 03/21/24 (Lidoderm) ea ketorolac 10 mg tablet 10 mg PO Q6H PRN pain #20 ta bs 03/05/25 methocarbamol 750 mg tablet 1,500 mg (2 x 750 mg) PO Q 8H PRN 03/05/25 pain, moderate #30 tabs methylprednisolone 4 mg tablets in 4 mg PO QAM #21 ea 03/05/25 a dose pack (Medrol (Michael)) Allergies Allergy/AdvReac Type Severity Reaction Status Date / Time No Known Allergies Allergy Verified 03/05/25 17:35 Review of Systems Review of Systems: Yes all other systems are reviewed and are negative Constitutional: Constitutional: Denies fatigue, Denies fever(s) and Denies headache(s) Eyes: Eyes: Denies change in vision ENT: Denies dizziness, Denies headache(s) and Reports neck pain Cardiovascular: Cardiovascular: Denies chest pain and Denies dyspnea Respiratory: Respiratory: Denies dyspnea Gastrointestinal: Gastrointestinal: Denies nausea and Denies vomiting Musculoskeletal: Musculoskeletal: Denies muscle weakness, Reports neck pain, Denies numbness, Reports radiating pain into limb and Reports tingling Neurologic: Denies dizziness, Denies headache(s), Denies numbness and Reports tingling Endocrine: Endocrine: Denies fatigue [facility] Past Medical History Attestation statement: The following information was validated with the patient. Social History Social History Unable to assess alcohol history related to: Unknown Advance Directives: No Advance Directives Information Provided: No Do you have a plan to hurt others: No Plan Physical Exam Vital Signs: Vital Signs: Last Vital Signs Temp 98.1 F 03/05/25 17:34 Pulse 86 03/05/25 17:34 Resp 17 03/05/25 17:34 BP 157/71 H 03/05/25 17:34 Pulse Ox 97 03/05/25 17:34 O2 Del Method Room Air 03/05/25 17:34 BMI result Body Mass Index 39.2 Const: Other: Alert well-appearing Orientation/consciousness: patient oriented x3 Resp: Effort & Inspection: normal respiratory effort Cardio: Other: Normal peripheral perfusion Skin: Other: Warm dry no l rash Neuro: General: patient oriented x3, gait normal, no focal motor deficits and CN's II-XI intact bilaterally Extrem: Other: Able to fully range the right upper extremity Psych: Other: Cooperative Course Course Course Narrative: This is an RME performed by Nasreen Murphy, [employer]: Additional HPI, ROS, PE not included below will be deferred to primary provider. Patient is a 49-year-old female who presents emergency department for evaluation, experiencing pain to the mid posterior/ right lateral neck, right posterior shoulder radiating down the right arm with associated numbness and tingling to the hand. She denies precipitating injury. She has tried ice/heat, topical pain patches, acetaminophen, ibuprofen. Was evaluated at [facility], was prescribed orphenadrine muscle relaxant which has not given her any relief. In the past she has taken cyclobenzaprine for alternative muscle pains, this results in restless leg syndrome so she did not want to take this medication Denies chest pain, shortness of breath, fevers, chills, N/V, abdominal pain. Medications Administered Discontinued Medications Generic Name Dose Route Start Last Admin Trade Name Kelsey PRN Reason Stop Dose Admin Diazepam 5 mg 03/05/25 19:46 03/05/25 20:18 Diazepam 10 Mg/2 Ml Cartridge IVPUSH 03/05/25 19:47 5 mg STAT STA Administration Ketorolac Tromethamine 15 mg 03/05/25 19:46 03/05/25 20:17 Ketorolac Tromethamine 15 Mg/Ml Vial IVPUSH 03/05/25 19:47 15 mg ONCE ONE Administration Methylprednisolone Sodium Succinate 125 mg 03/05/25 19:46 03/05/25 20:18 Methylprednisolone Sod Succ 125 Mg/2 Ml Vial IVPUSH 03/05/25 19:47 125 mg ONCE ONE Administration Medical Decision Making Medical Decision Making MDM Narrative: 49-year-old female presents with right-sided neck pain x1 week. Pain radiates down right lower extremity to the tips of her fingers. Associated tingling sensation. Patient states she has been using thal-ofy-okdabvt ibuprofen and Tylenol without relief from her symptoms. Denies headache, visual changes, nausea vomiting or weakness of upper extremity. Patient states she has been performing a great deal of heavy lifting at work prior to the onset of her sympt oms, she has had similar episodes in the past, while performing the same activity. No underlying chronic issues History: Per patient I have considered the following differential diagnoses: Cervical radiculopathy, cervical strain, VAD, compression fracture Plan: The patient is having radicular symptoms, she has had similar episodes in the past, we will obtain imaging of the neck. Giving steroid, Toradol and Valium for pain. To note, she has no exam findings that are consistent with VAD. I have independently reviewed the following tests: CT cervical spine:IMPRESSION: Degenerative changes present with which results in moderate canal stenosis at C5-6 and C6-7. Left-sided moderately severe to severe foraminal narrowing at C5-6 and C6-7. Discharge Plan Discharge Clinical Impression: Cervical radiculopathy at C5, Cervical radiculopathy at C6 Patient Disposition: Home, Self-Care Instructions: Cervical Radiculopathy (ED) Additional Instructions: You were found to have degenerative changes at C5-C6 and C6-C7. The pain you are experiencing is related to cervical radiculopathy, or a pinched nerve. See home care instructions. Use the methocarbamol as needed for pain this is a muscle relaxant, it will cause drowsiness do not drive or operate machinery while taking the medication. Use the ketorolac as directed this is an anti- inflammatory take it with food. Use the Medrol Dosepak as directed this is a steroid taper, take it with food as well, I recommend taking in the morning. Follow up with your primary care provider as needed. Prescriptions: New methylprednisolone [Medrol (Michael)] 4 mg tablets,dose pack 4 mg PO QAM Qty: 21 0RF Rx Instructions: Take per package instructions ketorolac 10 mg tablet 10 mg PO Q6H PRN (Reason: pain) Qty: 20 0RF Rx Instructions: maximum total duration of 5 days from all oral, intranasal, or parenteral formulations. The patient received an IV dose of Toradol here in the emergency methocarbamol 750 mg tablet 1,500 mg PO Q8H PRN (Reason: pain, moderate) Qty: 30 0RF No Action prednisone 20 mg tablet 20 mg PO DAILY 7 Days Qty: 7 0RF albuterol sulfate 90 mcg/actuation HFA aerosol inhaler 1 inh inhalation QID PRN (Reason: shortness of breath or wheezing) Qty: 8.5 0RF ketorolac 10 mg tablet 10 mg PO TID PRN (Reason: pain) 5 Days Qty: 15 0RF cyclobenzaprine 5 mg tablet 5 mg PO Q8H PRN (Reason: pain (scale score 7-10)) 5 Days Qty: 14 0RF acetaminophen [Tylenol Extra Strength] 500 mg tablet 500 mg PO Q6H PRN (Reason: fever or pain) Qty: 14 0RF lidocaine [Lidoderm] 5 % adhesive patch,medicated 1 patch topical DAILY MDD remove after 12 hours PRN (Reason: pain) Qty: 30 0RF Rx Instructions: leave on most painful area for up to 12 hrs Stand Alone Forms: Work/School Release Print Language: Bermudian
[2025-03-05] MEDS: diazePAM 10 MG/2 ML CARTRIDGE 5 MG IVPUSH (20:18)
[2025-03-05 22:37] VITALS: BP 140/63; PULSE 84; RESP 18; TEMP 36.4; O2SAT 94
[2025-03-05 22:39] VITALS: BP 140/63; PULSE 84; RESP 18; TEMP 36.4; O2SAT 94
== END 2025-03-05 22:40 | disposition home or self-care (01) ==
PROVIDERS: Emergency Provider Internal Medicine; PCP Nurse Practitioner Family
DX: M54.12 Radiculopathy, cervical region (principal); M54.9 Dorsalgia, unspecified; M54.2 Cervicalgia; M79.601 Pain in right arm; R20.2 Paresthesia of skin
CPT/HCPCS: 72125; 96374; 96375; 99284; J1885; J2919; J3360

== ENCOUNTER → 2025-03-05 19:46 | Outpatient (BNV) | payer OTHER, SELFPAY | PROVIDERS: Emergency Provider Internal Medicine; PCP Nurse Practitioner Family; Visit Provider Radiology Diagnostic Radiology | DX: M50.122 Cervical disc disorder at C5-C6 level with radiculopathy (principal) | CPT/HCPCS: 72125 ==